=== PATIENT | male | born 1975 ===

== ENCOUNTER → 2019-10-15 07:30 | Outpatient (BNVA) | payer BC, SELFPAY | PROVIDERS: Visit Provider Nurse Practitioner Family | DX: R09.89 Other specified symptoms and signs involving the circulatory and respiratory systems (principal); R50.9 Fever, unspecified; R68.89 Other general symptoms and signs; J10.1 Influenza due to other identified influenza virus with other respiratory manifestations | CPT/HCPCS: 71046; 85025; 87804 ==

== ENCOUNTER → 2023-06-17 11:56 | Outpatient (BNVA) | payer BC, SELFPAY | PROVIDERS: Visit Provider Nurse Practitioner | DX: R29.898 Other symptoms and signs involving the musculoskeletal system (principal); M79.5 Residual foreign body in soft tissue | CPT/HCPCS: 73130 ==

== ENCOUNTER → 2023-06-26 15:29 | Outpatient (BNVA) | payer BC, SELFPAY | PROVIDERS: Referring Provider Nurse Practitioner; Visit Provider Physician Assistant | DX: M79.645 Pain in left finger(s) | CPT/HCPCS: 73130 ==